=== PATIENT | female | born 1980 | race Caucasian/White ===

== ENCOUNTER 2020-04-07 00:18 | Outpatient (CLI) | payer OTHER, SELFPAY ==
[2020-04-07 18:56] LABS: SARS-CoV-2 RNA PCR Negative
== END 2020-04-07 00:19 | disposition home or self-care (01) ==
LOC: ANHCOVIDDT 00:18
PROVIDERS: Visit Provider Surgery Plastic and Reconstructive Surgery
DX: Z01.818 Encounter for other preprocedural examination (principal); Z11.59 Encounter for screening for other viral diseases; L57.4 Cutis laxa senilis
CPT/HCPCS: 87635; C9803; U0003

== ENCOUNTER 2020-04-09 00:35 | Day surgery (SDC) | payer OTHER, SELFPAY ==
[2020-03-26 14:57] VITALS: BMI 24.3
[2020-04-09] VITALS (8 sets, daily range): BP systolic 106–123; BP diastolic 61–75; PULSE 53–84; RESP 12–20; TEMP 36.2–36.7; O2SAT 99–100
--- NOTE | 2020-04-09 06:40 | WPDHPUPDATE1 ---
History and Physical Update Update Date/Time: 04/09/20 06:40 History and Physical has been reviewed, including an updated exam of the patient. There are NO changes in the patient's condition. Risks, benefits, and alternatives have been discussed and questions answered. Patient agrees to proceed with procedure.
[2020-04-09] MEDS: LACTATED RINGERS 1,000 ML 30 ML IV CONT ×2 (07:00→10:09)
--- NOTE | 2020-04-09 07:00 | PM.PROC ---
Procedure Note - Detailed Date of procedure: 04/09/20 Pre-op diagnosis: Skin Laxity, Micromastia Post-op diagnosis: same Procedure performed: Bilateral augmentation mastopexy with galaflex Description of procedure: She is here today for bilateral breast augmentation mastopexy with galaflex. Previously and again today the risks, benefits, alternatives were discussed in extensive detail. I wanted her to be very realistic about the risks involved as well as expectations. We discussed aftercare and what to monitor for. Made sure answered all of her questions to her satisfaction today and consent was obtained. she understands there is always possibility we would have to decrease the size given skin envelope. She is willing to accept this. Marked in the preoperative holding area with their verification. The patient was taken to the operating room placed supine on the operating table. Anesthesia was provided by anesthesiology. A surgical time-out was taken. We cleansed the skin and 1% lidocaine and 0.25% Marcaine with epinephrine was used anesthetize as a field block. She was prepped and draped in a standard sterile fashion. Tegaderm nipple Chu were placed. A 15 blade used to make an incision along the Planned vertical incision. Dissection was continued until the chest wall as identified. I incised the pectoralis major along its inferior border and completely released the inferior border leaving the medial border intact. I created a subpectoral pocket in the appropriate dimensions based on our preoperative planning for the implant. I then copiously irrigated with saline solution and verified a strict hemostasis. Next the use a triple antibiotic and Betadine containing solution to irrigate the pocket. I washed my gloves with the triple antibiotic and Betadine solution. We washed the implant immediately upon opening it with this solution and only opened it when we needed it. I used implant funnel and no-touch technique. The implant was introduced into the pocket using the funnel. Having verified positioning of the implant this was closed using 2-0 Vicryl. I then tailor tacked the breast into place based on my preoperative markings. I verified symmetry in a sitting position. Marked out the nipple-areolar complex at 38 mm. This is based on preoperative planning, intraoperative measurements and intraoperative observations which were in full agreement. She was placed supine. I de-epithelialized the superior medial pedicle. Removed the central tissue ([place] dependent tissue). She did have a degree of asymmetry which was identified preoperatively and I did asymmetric resection for this reason. I elevated medial and lateral tissue flaps in order to place my galaflex. I had soaked the gallaflex in a Betadine/ triple antibiotic containing solution it and this was trimmed and sutured into place along the inferior border of the breast bilateral with 2-0 Vicryl. .I then closed with 2-0 Vicryl followed by 3-0 Monocryl along the vertical and 3-0 strata fix along the IMF. Final closure with a running subcuticular 4-0 Monocryl and tissue glue. Fluffs and surgical bra were placed. Patient was awoke and taken to PACU without difficulty. All instrument sponge counts were correct at the end of the case. Surgeon: Pramod Sanchez MD Estimated blood loss (mL): 10 Drains: No Packing: No Pathology: none sent Complications: No immediate complications Condition: stable Disposition: PACU Findings: Galaflex [id number] REF [id number] Lot [id number] Exp 07/15/2020 Bilateral Allergan Inspira SoftTouch 415cc Right: REF [id number] Left: REF [id number]
[2020-04-09 07:04] LABS: Urine Cotinine NEGATIVE
--- NOTE | 2020-04-09 07:05 | P.PNAN_ITS ---
Anes - Initial Pre Proc Eval Procedure: Operation Date: 04/09/20 07:30 Proposed Procedures p Bilateral Breast Augmentation - Pramod Sanchez MD s Bilateral Breast Mastopexy with Galaflex - Pramod Sanchez MD Date/Time: 04/09/20 07:05 Surgeon: Pramod Sanchez MD Pre Op Diagnosis: Skin Laxity, Micromastia Patient Data Age: 39 Gender: F Height: 1.7 m Weight: 70.5 kg Allergies Allergy/AdvReac Type Severity Reaction Status Date / Time penicillin G Allergy Unknown Hives Verified 04/09/20 07:04 Home Medications Medication Instructions Recorded Confirmed Type docusate sodium 100 mg capsule 100 mg PO DAILY #14 cap 03/27/20 Rx ondansetron HCl 4 mg tablet 4 mg PO Q8H #28 tablet 03/27/20 Rx carisoprodol 350 mg tablet 350 mg PO TID PRN #21 tablet 03/30/20 03/30/20 Rx oxycodone-acetaminophen 5 mg-325 1 tablet PO Q6H PRN #15 tablet 03/30/20 03/30/20 Rx mg tablet Laboratory Tests 04/09/20 06:19 Cotinine Negative Patient hx anesthesia problems: none Family hx anesthesia problems: none [facility] Surgical History Surgical History (Updated 04/08/20 @ 09:48 by Jonah Miller DO) History of x2 History of tonsillectomy Social History Social History Smoking status: Former smoker Alcohol intake: never Gender identity (if verbalized by the patient): Female Anes - Eval Final PreProcedure Day of Procedure 04/09/20 07:05 Patient weight: normal Heart: regular rate and rhythm Lungs: clear to auscultation and normal air movement Airway: Mallampati scale class 1 Neurological: alert and oriented Last oral intake: >/= 8 hours ASA classification: II Emergent: no Anesthetic plan: proceed Anesthesia type and monitoring: general LMA and standard monitoring Informed Consent: The patient's anesthetic plan and its attendant risks and benefits were discussed with the patient/family/POA. Questions were solicited and answers provided to the satisfaction of the patient/family/POA.
[2020-04-09] MEDS: CLINDAMYCIN 900 MG/NS 50 ML 900 MG/50 ML PIGGYBACK 50 MG IVPB (07:25)
[2020-04-09] MEDS: LIDO 1%/EPINEPHRINE 1:100,000 20 ML VIAL 80 ML INFILTRATE (07:54)
== END 2020-04-09 11:48 | disposition home or self-care (01) ==
PROVIDERS: PCP Family Medicine; Visit Provider Surgery Plastic and Reconstructive Surgery
PROC: (CPT 19325; principal; 2020-04-09 07:30)
PROC: (CPT 19316; 2020-04-09 07:30)
DX: N64.82 Hypoplasia of breast (principal); L57.4 Cutis laxa senilis; N64.81 Ptosis of breast; N64.89 Other specified disorders of breast; D68.51 Activated protein C resistance; Z87.891 Personal history of nicotine dependence; Z88.0 Allergy status to penicillin
CPT/HCPCS: 19325; 19316; 36415; 80307; A9270; J0131; J1100; J1170; J1580; J2250; J2405; J2704; J3010; J7120